=== PATIENT | male | born 1960 | race Two or more races ===

== ENCOUNTER 2016-10-13 08:22 | Emergency (ER) | payer OTHER, BC ==
[~2016-10-13] VITALS: Ht 185.4 cm; Wt 88.5 kg
[2016-10-13 08:41] VITALS: BP 171/72
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
[2016-10-13] MEDS ORDERED: DICL75TA PO (10:24)
[2016-10-13] MEDS ORDERED: CYCL10TA2 PO (10:24)
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
== END 2016-10-13 11:00 | disposition home or self-care (01) ==
LOC: EDSEX 08:22 → ER 08:22
DX: S13.4XXA Sprain of ligaments of cervical spine, initial encounter (principal); E11.9 Type 2 diabetes mellitus without complications; V43.52XA Car driver injured in collision with other type car in traffic accident, initial encounter; Y93.89 Activity, other specified; Y92.89 Other specified places as the place of occurrence of the external cause; Y99.8 Other external cause status
CPT/HCPCS: 72125; 99284-25